=== PATIENT | female | born 1975 | race Caucasian/White ===

== ENCOUNTER → 2016-04-12 | Outpatient (CLI) | payer SELFPAY | END | disposition home or self-care (01) | LOC: GMAM 10:48 | PROVIDERS: ATTEND Family Medicine | DX: Z00.00 Encounter for general adult medical examination without abnormal findings (principal) ==

== ENCOUNTER → 2016-04-21 | Outpatient (CLI) | payer BC ==
--- NOTE | 2016-04-21 14:16 | RAD ---
EXAM DESCRIPTION: Barium Swallow CLINICAL HISTORY: 40 years Female, DYSPHAGIA COMPARISON: None. TECHNIQUE: Gas and barium contrast esophagram. Total exam dose 15.79 mGy. FINDINGS: The esophagus is of normal course and caliber. There is no hiatal hernia. No esophageal wall or fold thickening is seen. There is no esophageal stricture or diverticulum. Images obtained in the prone MERCHANT position show no evidence of esophageal dysmotility. No gastroesophageal reflux was observed during this exam. IMPRESSION: Negative exam. No apparent esophageal abnormality to explain dysphagia. Electronically signed by: Ivan Muñoz MD 04/21/2016 2:14 PM [employer] [facility]
== END | disposition home or self-care (01) ==
LOC: RAD 04-12 10:45
PROVIDERS: ATTEND Family Medicine
DX: R13.10 Dysphagia, unspecified (principal)

== ENCOUNTER 2016-08-16 07:20 | Day surgery (SDC) | payer BC ==
[~2016-08-16 07:20] MED LIST: LACTATED RINGERS 1,000 ML ONE; PROPOFOL 200 MG/20 ML VIAL IV ONE
--- NOTE | 2016-08-16 09:45 | OP ---
DATE OF PROCEDURE: 08/16/16 PREOPERATIVE DIAGNOSIS: 1. Dysphagia. 2. Heartburn. POSTOPERATIVE DIAGNOSIS: 1. Schatzki's ring. 2. Hiatal hernia. 3. Rule out eosinophilic esophagitis. PROCEDURE: 1. Esophagogastroduodenoscopy. 2. Dilation. 3. Biopsy. SURGEON: Mehran Holder MD. COMPLICATIONS: None apparent. BLOOD LOSS: None. MEDICATIONS: Monitored anesthesia care. DESCRIPTION OF PROCEDURE: Informed consent was obtained prior to sedation. The preprocedure cardiopulmonary assessment was satisfactory. The patient was placed in the left lateral decubitus position and was sedated. The tip of the Olympus esophagogastroduodenoscope was inserted in the oropharynx and carefully advanced to the cricopharyngeus and the esophageal lumen. The esophageal inlet is unremarkable. The esophagus was closely examined and there is no evidence of any significant esophageal stricture in the esophageal body. At the distal esophagus, however, there is evidence of a mild Schatzki's ring. Just passed the mild ring, there is a small hiatal hernia. The stomach was examined with direct and retroflexed views. The antrum, body, fundus, cardia and incisura were examined. Besides the small hiatal hernia, the stomach is unremarkable. The duodenum was unremarkable down to the third portion. The esophagus was again closely examined. There is no evidence of any esophageal mass or cancer. I decided to dilate the Schatzki's ring and dilated it to 19 mm with a Savary dilator over a wire. I then biopsied both the proximal esophagus and the distal esophagus to rule out eosinophilic esophagitis. The procedure was then terminated. ENDOSCOPIC FINDINGS: 1. Mild Schatzki's ring, status post dilation. 2. Small hiatal hernia. 3. No evidence of esophageal cancer. 4. I did biopsy the proximal and distal esophagus with cold biopsy forceps to rule out eosinophilic esophagitis. RECOMMENDATIONS: 1. Followup the biopsies. 2. I do recommend a daily proton pump inhibitor to see if that improves her symptoms. 3. Followup with me in two months. #[id number] cc: Kemar Fisher MD [facility]
[2016-08-16 10:24] VITALS: BP 1020/64; TEMP 98.1; O2SAT 100
== END 2016-08-16 09:55 | disposition home or self-care (01) ==
LOC: AMB 07:20
PROVIDERS: ATTEND Internal Medicine Gastroenterology
DX: K22.2 Esophageal obstruction (principal); K44.9 Diaphragmatic hernia without obstruction or gangrene; K21.0 Gastro-esophageal reflux disease with esophagitis; G43.909 Migraine, unspecified, not intractable, without status migrainosus; E66.3 Overweight; Z68.26 Body mass index [BMI] 26.0-26.9, adult; Z88.8 Allergy status to other drugs, medicaments and biological substances; Z80.0 Family history of malignant neoplasm of digestive organs
CPT/HCPCS: 00740; 43239; 43248; J3490; J7120

== ENCOUNTER → 2019-01-06 | Outpatient (CLI) | payer BC | LOC: GMA MATASK 14:25 | PROVIDERS: ATTEND Family Medicine | DX: D50.9 Iron deficiency anemia, unspecified (principal) ==